=== PATIENT | female | born 1995 | race Caucasian/White ===

== ENCOUNTER 2017-02-17 21:35 | Emergency (ER) | payer MEDICAID ==
[~2017-02-17 21:35] MED LIST: ZOFR4TAB3 SL
--- NOTE | 2017-02-17 23:07 | PD ---
HPI Chief Complaint Contractions Date Seen: February 17, 2017 Time Seen: 23:00 Travel History International Travel<30 Days: No Contact w/Intl Traveler<30Days: No Known Affected Area: No History of Present Illness HPI 21-year-old 3 para 1 at 40-5/7 weeks gestation by LMP and 28 week ultrasound who presents today for mild irregular contractions. She states that she missed her care appointment this week and wanted to check in. She receives care from [facility] Strickland. She denies leakage of fluid, bleeding, decreased movement, worsening contractions. Para: 1 : 3 Miscarriage: 1 History Past Medical History Medical History: Denies Significant Hx Obstetric History Obstetric History 1 term vaginal delivery, 1 spontaneous AB Past Surgical History Surgical History: No Previous Surgery Family History Family History: Negative Social History Alcohol Use: No Tobacco Use: No Substance Abuse: No Allergies-Medications (Allergen,Severity, Reaction): Coded Allergies: No Known Allergies (Unverified , 09/11/16) Home Meds Active Scripts Ondansetron Odt (Zofran Odt)4 Mg Tab4 Mg SL Q8HR PRN (Nausea/Vomiting) #12 TAB Ref 0 Prov:Wilner Worley MD 09/11/16 Review of Systems Except as stated in HPI: all other systems reviewed are Neg Physical Exam Narrative GENERAL: Well-nourished, well-developed patient. SKIN: Warm and dry. HEAD: Normocephalic and atraumatic. EYES: No scleral icterus. No injection or drainage. ENT: No nasal drainage noted. Mucous membranes pink. Airway patent. NECK: Supple, trachea midline. No JVD. CARDIOVASCULAR: Regular rate and rhythm without murmurs, gallops, or rubs. RESPIRATORY: Breath sounds equal bilaterally. No accessory muscle use. ABDOMEN/GI: Abdomen soft, non-tender, bowel sounds present, no rebound, no guarding Gravid to [-] weeks size Fundal Height: [-] GENITOURINARY: External Genitalia: intact and normal in appearance BUS glands: [-] Cervix: [-] Dilatation: [-3] Effacement: [lg-] Station: [-2-] Presentation: [v-] Membranes: [intact] Uterine Contractions: [-] FHT's: Category: [-1] Baseline: [-] Reactive: [y-] Variability: [-] Decels: [-] EXTREMITIES: No cyanosis or edema. BACK: Nontender without obvious deformity. No CVA tenderness. NEUROLOGICAL: Awake and alert. Motor and sensory grossly within normal limits. Five out of 5 muscle strength in all muscle groups. Normal speech. Data Data Vital Signs Reviewed: Yes MDM Medical Record Reviewed: Yes Narrative Course / MDM Assessment: 40-5/7 week intrauterine without evidence of labor Plan: Discussed with the patient possibility of proceeding with labor induction versus further expectant care due to the risk of post term pregnancies. She would like to work on a plan with Pepper Strickland for induction on Sunday. Diagnosis Diagnosis: Primary Impression: Intrauterine Disposition: DISCHARGE HOME Mark Stewart MD February 17, 2017 23:07
== END 2017-02-17 23:11 | disposition home or self-care (01) ==
LOC: HOBED 21:35
DX: O26.93 Pregnancy related conditions, unspecified, third trimester (principal); R10.9 Unspecified abdominal pain; Z3A.40 40 weeks gestation of pregnancy
CPT/HCPCS: 99284

== ENCOUNTER 2017-02-20 14:35 | Inpatient (IN) | payer MEDICAID ==
[~2017-02-20] VITALS: Ht 170.2 cm; Wt 95.3 kg
[2017-02-20] VITALS (36 sets, daily range): BP systolic 99–137; BP diastolic 34–92; PULSE 68–117; RESP 16–18; TEMP 98.3–98.5
--- NOTE | 2017-02-20 15:26 | HHI.HP ---
HPI Chief Complaint Induction Date Seen: February 20, 2017 Time Seen: 15:25 Travel History International Travel<30 Days: No Contact w/Intl Traveler<30Days: No Known Affected Area: No History of Present Illness HPI Pt is a 21 year old at 41/1 weeks gestation based on LMP, confirmed by first trimester US presenting for Induction. care has been with Pepper Strickland. She endorses movement, denies vaginal bleeding, leakage of fluid. She has felt occasional contractions, irregular in frequency. She reports that this has been uncomplicated, denies issues with hypertension or elevated blood sugar. GBS negative. She is not sure if she would like to have an epidural. Para: 1 : 3 History Past Medical History Medical History: Denies Significant Hx Obstetric History Obstetric History 1 term vaginal delivery, 1 spontaneous Past Surgical History Narrative Surgical Appendectomy Family History Narrative Family History Mother: several medical issues, unable to specify Father: Heart disease Social History Alcohol Use: No Tobacco Use: Yes (5-7 cigs daily) Substance Abuse: No Allergies-Medications (Allergen,Severity, Reaction): Coded Allergies: No Known Allergies (Unverified , 02/20/17) Home Meds Reported Medications Vit-Iron Carbonyl ( Plus Iron 29-1 mg)1 Tab Tab1 Tab PO DAILY #30 TAB Ref 0 02/20/17 Discontinued Scripts Ondansetron Odt (Zofran Odt)4 Mg Tab4 Mg SL Q8HR PRN (Nausea/Vomiting) #12 TAB Ref 0 Prov:Wilner Worley MD 09/11/16 Review of Systems General / Constitutional: No: Fever, Chills Eyes: No: Visual changes HENT: No: Headaches Cardiovascular: No: Chest Pain or Discomfort Gastrointestinal: No: Abdominal Pain Genitourinary: No: Dysuria Musculoskeletal: Edema (lower extremity edema) Skin: Rash Psychiatric: No: Mood Disorder Physical Exam Narrative GENERAL: Well-nourished, well-developed patient. SKIN: Warm and dry. HEAD: Normocephalic and atraumatic. EYES: No scleral icterus. No injection or drainage. ENT: No nasal drainage noted. Mucous membranes pink. Airway patent. NECK: Supple, trachea midline. No JVD. CARDIOVASCULAR: Regular rate and rhythm without murmurs, gallops, or rubs. RESPIRATORY: Breath sounds equal bilaterally. No accessory muscle use. ABDOMEN/GI: Abdomen soft, non-tender, bowel sounds present, no rebound, no guarding Gravid to 40 weeks size GENITOURINARY: External Genitalia: intact and normal in appearance Cervix: Posterior Dilatation: 4cm Effacement: 40% Station: -3 Presentation: vertex Membranes: Intact Uterine Contractions: Occasional, irregular FHT's: Category: 1 Baseline: 145 Reactive: + Variability: Moderate Decels: Absent EXTREMITIES: No cyanosis or edema. BACK: Nontender without obvious deformity. No CVA tenderness. NEUROLOGICAL: Awake and alert. Motor and sensory grossly within normal limits. Five out of 5 muscle strength in all muscle groups. Normal speech. Data Data Vital Signs Reviewed: Yes Assessment/Plan Assessment and Plan Pt is a 21 year old at 41/1 weeks gestation based on LMP, confirmed by first trimester US presenting for Induction. IUP Category 1 tracing, reassuring Pt admitted for induction for post dates Will start Pitocin at rate of 1-1-30 Pt unsure if she would like an epidural Consider AROM GBS negative Anticipate vaginal delivery Irineo Escamilla Dr., MD R2 February 20, 2017 15:26
[2017-02-20] MEDS ORDERED: LACTATED RINGER'S 1000 ML INJ 1,000 ML IV PRN (15:40)
[2017-02-20] MEDS ORDERED: LACTATED RINGER'S 1000 ML INJ 1,000 ML IV SCH (15:40)
[2017-02-20] MEDS ORDERED: CITRIC ACID-SODIUM CITRATE LIQ 30 ML UDC PO SCH (15:45)
[2017-02-20] MEDS ORDERED: OXYTOCIN 30 UNITS-500ML PREMIX 500 ML IV SCH ×2 (15:45→22:00)
[2017-02-20] MEDS ORDERED: OXYTOCIN 30 UNITS-500ML PREMIX 500 ML IV ONE (15:45)
[2017-02-20] MEDS ORDERED: LIDOCAINE HCL 1% 50 ML VIAL I-DERMAL PRN (15:45)
[2017-02-20] MEDS ORDERED: LIDOCAINE HCL 1% 50 ML VIAL INFIL PRN (15:45)
[2017-02-20] MEDS ORDERED: ONDANSETRON HCL 4 MG/2 ML VIAL IV PRN (15:45)
[2017-02-20] MEDS ORDERED: SODIUM CHLORID 0.9% 500 ML INJ 500 ML IV PRN (15:45)
[2017-02-20] MEDS ORDERED: PREN29TA PO (15:45)
[2017-02-20] MEDS ORDERED: MINERAL OIL 10 ML VIAL TOPICAL PRN (15:45)
[2017-02-20] MEDS ORDERED: DIPHTH/TETANUS/ACEL PERTUSSIS (BOOSTER) 0.5 ML VIAL/PFS IM ONE (16:00)
[2017-02-20] MEDS ORDERED: SODIUM CHLOR 0.9% 1000 ML INJ 1,000 ML IV PRN (16:00)
[2017-02-20] MEDS ORDERED: MEASLES, MUMPS, RUBELLA VACCINE 0.5 ML VIAL SQ ONE (16:00)
[2017-02-20 16:14] LABS: AUTOMATED NEUTROPHIL # 5.1 TH/MM3 (1.8-7.7); BASOPHIL % 0.2 % (0.0-2.0); EOSINOPHIL # 0.1 TH/MM3 (0-0.4); EOSINOPHIL % 1.1 % (0.0-4.0); HEMATOCRIT 36.1 % (35.0-46.0); HEMO FLAGS DIFF FINAL; LYMPHOCYTE # 1.6 TH/MM3 (1.0-4.8); MEAN CELL VOLUME 83.3 FL (80.0-100.0); MEAN CORPUSCULAR HEMOGLOBIN 28.3 PG (27.0-34.0); MONO % 4.5 % (0.0-8.0); NEUT % 71.2 % (16.0-70.0); PLATELET COUNT 206 TH/MM3 (150-450); RED BLOOD COUNT 4.34 MIL/MM3 (4.00-5.30); RED CELL DISTRIBUTION WIDTH 13.8 % (11.6-17.2); WHITE BLOOD COUNT 7.2 TH/MM3 (4.0-11.0)
[2017-02-20 16:15] LABS: BLOOD, URINE NEG (NEG); GLUCOSE,URINE NEG (NEG); HYALINE CAST, URINE 1 /lpf (RARE); KETONE, URINE NEG (NEG); NITRITE,URINE NEG (NEG); SQUAMOUS EPITHELIAL CELL URINE <1 /hpf (0-5); URINE COLOR YELLOW (YELLW/STRAW)
[2017-02-20 16:18] LABS: COMMENT (UR) CULT NOT INDICATED; CULTURE IF INDICATED CULT NOT INDICATED
[2017-02-20 19:27] LABS: AMPHETAMINE, URINE NEG (NEG); BARBITURATES, URINE NEG (NEG); COCAINE, URINE NEG (NEG)
[2017-02-20] MEDS ORDERED: fentaNYL 2MCG-BUPIV 0.125% INJ 100 ML ONE (19:34)
[2017-02-20] MEDS ORDERED: ePHEDrine/NS 25 MG/5 ML SYR ONE (19:35)
[2017-02-20] MEDS ORDERED: ePHEDrine/NS 25 MG/5 ML SYR IV PRN (20:30)
[2017-02-20] MEDS ORDERED: fentaNYL 2MCG-BUPIV 0.125% 100 ML EPIDURAL SCH (20:30)
[2017-02-20] MEDS ORDERED: NO SYSTEM NARCOTICS PRN (20:30)
[2017-02-20] MEDS ORDERED: DO NOT ADMINISTER ANTICOAGULANTS PRN (20:30)
--- NOTE | 2017-02-20 20:56 | PD.LABORPN ---
Subjective Subjective Pt comfortable after epidural. FHR cat 1 TOCO 1-2 minutes SVE 7cm/80% effaced/-2to-3 AROM done, with clear fluid, moderate amount. Objective Vital Signs Vital Signs Date Time Temp Pulse Resp B/P Pulse Ox O2 Delivery O2 Flow Rate FiO2 02/20/17 20:45 18 02/20/17 20:44 70 110/61 02/20/17 20:30 75 110/62 02/20/17 20:20 75 110/75 02/20/17 20:20 74 02/20/17 20:16 18 02/20/17 20:15 73 02/20/17 20:15 18 02/20/17 20:15 74 132/67 02/20/17 20:10 71 118/74 02/20/17 20:10 69 02/20/17 20:00 90 02/20/17 20:00 73 127/86 02/20/17 20:00 18 02/20/17 19:58 70 137/80 02/20/17 19:50 69 02/20/17 19:45 71 02/20/17 19:11 18 02/20/17 19:00 98.4 02/20/17 19:00 18 02/20/17 18:55 117 133/75 02/20/17 18:31 76 109/53 02/20/17 18:10 76 118/66 02/20/17 17:23 18 02/20/17 17:00 80 119/78 02/20/17 16:30 83 121/76 02/20/17 16:00 85 118/65 02/20/17 15:59 86 119/63 02/20/17 15:15 98.3 18 02/20/17 15:06 92 119/71 Objective Pelvic Exam: Cervix: soft-] Dilatation: [7cm-] Effacement: [80%-] Station: [-2 to -3] Presentation: [vertex] Membranes: [ruptured] Uterine Contractions: [1-2 minutes-] FHT's: Category: [1-] Baseline: [110-] Reactive: [-] Variability: [-] Decels: [-] Assessment/Plan Assessment and Plan Post-term labor. Progressing well. Continue Pitocin per protocol Heron Arellano MD February 20, 2017 20:56
--- NOTE | 2017-02-20 21:47 | PD.OB.DELI ---
Delivery Date: February 20, 2017 Anesthesia: Epidural Episiotomy: None Vaginal Delivery: Normal Presentation: Occiput anterior Nuchal Cord: None Delayed cord clamping (45 sec): No Infant: Male One Minute : 9 Five Minute : 9 Placenta: Spontaneous delivery, Intact, 3 vessel cord Laceration: No lacerations Additional Information Uncomplicated delivery. Intact perineum. EBL 150cc Heron Arellano MD February 20, 2017 21:47
[2017-02-20] MEDS ORDERED: ONDANSETRON ODT 4 MG TAB PO PRN (22:00)
[2017-02-20] MEDS ORDERED: ZOLPIDEM TARTRATE 5 MG TAB PO PRN (22:00)
[2017-02-20] MEDS ORDERED: ACETAMINOPHEN 325 MG TAB PO PRN (22:00)
[2017-02-20] MEDS ORDERED: ALUMINUM/MAGNESIUM/SIMETH 30 ML CUP PO PRN (22:00)
[2017-02-20] MEDS ORDERED: WITCH HAZEL 50%/GLYCERIN 12.5% 40 PAD JAR TOPICAL PRN (22:00)
[2017-02-20] MEDS ORDERED: SODIUM CHLORIDE 0.9% FLUSH 10 ML FLUSH IV FLUSH PRN (22:00)
[2017-02-20] MEDS ORDERED: BENZOCAINE 20% TOPICAL SPRAY 60 ML CAN TOPICAL PRN (22:00)
[2017-02-21] MEDS: IBUPROFEN 600 MG TAB PO PRN ×4 (04:48→22:43)
[2017-02-21 08:08] VITALS: BP 125/78; PULSE 68; RESP 18; TEMP 98.8
--- NOTE | 2017-02-21 08:27 | HHI.OB ---
Subjective Post Day: 1 Remarks Pt seen and examined this morning. day # 1 AFVSS overnight. Decreased lochia. Denies dysuria. No breast tenderness. She is feeding the baby via breast and bottle. Appetite good. No nausea or vomiting. Patient has not yet had a bowel movement. - Flatus. Ambulating well. Denies calf pain or shortness of breath. Otherwise, she is doing well this morning and has no other concerns. Objective Vitals/I&O Vital Signs Date Time Temp Pulse Resp B/P Pulse Ox O2 Delivery O2 Flow Rate FiO2 02/20/17 23:54 98.5 86 16 122/78 02/20/17 22:45 98.4 18 02/20/17 22:30 78 133/68 02/20/17 22:23 18 02/20/17 22:15 78 118/89 02/20/17 22:07 18 02/20/17 22:01 86 109/34 02/20/17 22:00 18 02/20/17 21:46 126/74 02/20/17 21:45 18 02/20/17 21:30 74 107/92 02/20/17 21:15 68 99/58 02/20/17 21:00 74 114/57 02/20/17 20:45 18 02/20/17 20:44 70 110/61 02/20/17 20:30 75 110/62 02/20/17 20:20 75 110/75 02/20/17 20:20 74 02/20/17 20:16 18 02/20/17 20:15 73 02/20/17 20:15 18 02/20/17 20:15 74 132/67 02/20/17 20:10 71 118/74 02/20/17 20:10 69 02/20/17 20:00 90 02/20/17 20:00 73 127/86 02/20/17 20:00 18 02/20/17 19:58 70 137/80 02/20/17 19:50 69 02/20/17 19:45 71 02/20/17 19:11 18 02/20/17 19:00 98.4 02/20/17 19:00 18 02/20/17 18:55 117 133/75 02/20/17 18:31 76 109/53 02/20/17 18:10 76 118/66 02/20/17 17:23 18 02/20/17 17:00 80 119/78 02/20/17 16:30 83 121/76 02/20/17 16:00 85 118/65 02/20/17 15:59 86 119/63 02/20/17 15:15 98.3 18 02/20/17 15:06 92 119/71 Objective Remarks GENERAL: Well-nourished, well-developed patient. CARDIOVASCULAR: Regular rate and rhythm without murmurs, gallops, or rubs. RESPIRATORY: Breath sounds equal bilaterally. No accessory muscle use. ABDOMEN/GI: Abdomen soft, non-tender. Fundus: Firm, non-tender at umbilicus. GENITOURINARY: Light to moderate bleeding. EXTREMITIES: No cyanosis or edema, non-tender, without signs of DVT. Medications and IVs Current Medications Medications (Trade) Dose Ordered Sig/Sandhya Route Start Time Stop Time Status Last Admin Oxytocin 500 ml @ 0 mls/hr TITRATE IV 02/20/17 15:45 02/20/17 16:00 Lactated Ringer's 1,000 ml @ 125 mls/hr Q8H IV 02/20/17 15:40 02/20/17 15:59 Lactated Ringer's 1,000 ml @ 3,000 mls/hr Q20M PRN IV 02/20/17 15:40 Sodium Chloride 500 ml @ 1,000 mls/hr ONCE PRN IV 02/20/17 15:45 02/21/17 15:44 (NS 1000 ml Inj) 1,000 ml @ 100 mls/hr Q10H PRN IV 02/20/17 16:00 (Zofran Inj) 4 mg Q6H PRN IV 02/20/17 15:45 (fentaNYL INJ) 50 mcg Q1H PRN IV PUSH 02/20/17 15:45 02/20/17 19:15 (fentaNYL INJ) 100 mcg Q1H PRN IV PUSH 02/20/17 15:45 (Muri-Lube Oil) 10 ml UNSCH PRN TOPICAL 02/20/17 15:45 (Flu (Quadrivalent) Vaccine Inj) 0.5 ml ONCE ONCE IM 02/21/17 10:00 02/21/17 10:01 Miscellaneous Information No systemic narcotics to be given except... UNSCH PRN .XX 02/20/17 20:30 02/21/17 20:29 Miscellaneous Information DO NOT ADMINISTER ANY ANTICOAGUL... UNSCH PRN .XX 02/20/17 20:30 02/21/17 20:29 (fentaNYL 2MCG-BUPIV 0.125% INJ) 100 ml @ 0 mls/hr TITRATE EPIDURAL 02/20/17 20:30 (ePHEDrine/NS 25 MG/5 ML SYR) 10 mg UNSCH PRN IV 02/20/17 20:30 02/21/17 20:29 (NS Flush) 2 ml UNSCH PRN IV FLUSH 02/20/17 22:00 (Tylenol) 650 mg Q4H PRN PO 02/20/17 22:00 02/21/17 04:48 (Motrin) 600 mg Q6H PRN PO 02/20/17 22:00 02/21/17 04:48 (Americaine 20% Top Spr) 1 spray Q4H PRN TOPICAL 02/20/17 22:00 (Tucks Pads) 1 applic QID PRN TOPICAL 02/20/17 22:00 (Karla-Colace) 2 tab Q12H PRN PO 02/20/17 22:00 (Ambien) 5 mg HS PRN PO 02/20/17 22:00 (Mag-Al Plus Susp Liq) 15 ml Q8H PRN PO 02/20/17 22:00 Ondansetron HCl 4 mg 4 mg Q6H PRN PO 02/20/17 22:00 (Pitocin 30 Units-NS 500 ml Premix) 500 ml @ 0 mls/hr TITRATE IV 02/20/17 22:00 (Percocet 5-325 Mg) 1 tab Q4H PRN PO 02/21/17 08:15 Assessment/Plan Assessment and Plan 21 y/o female who is PPD# 1 s/p induced vaginal delivery. -Continue routine care. -Percocet and Motrin PRN pain. -Encouraged OOB. Advised pelvic rest for 6 wks. -Re: ctrl, she is interested in the Depo-Provera shot like to further consider her options. -Anticipate discharge tomorrow. Irineo Barrera Dr., MD R2 February 21, 2017 08:27
[2017-02-21] MEDS ORDERED: INFLUENZA VIRUS VACCINE (QUADRIVALENT) 0.5 ML SYR IM ONE (10:00)
[2017-02-21] MEDS: DOCUSATE SODIUM 50 MG/SENNA 8.6 MG TAB PO PRN ×2 (10:17→11:43)
[2017-02-21] MEDS: oxyCODONE/ACETAMINOPHEN 5 MG/325 MG TAB PO PRN ×3 (10:18→22:43)
[2017-02-21 19:20] VITALS: BP 115/66; PULSE 78; RESP 18; TEMP 98.2
[2017-02-22 08:45] VITALS: BP 132/89; PULSE 65; RESP 16; TEMP 98.9
[2017-02-22] MEDS: oxyCODONE/ACETAMINOPHEN 5 MG/325 MG TAB PO PRN (08:50)
[2017-02-22] MEDS: IBUPROFEN 600 MG TAB PO PRN (08:50)
--- NOTE | 2017-02-22 10:30 | HHI.OB ---
Subjective Post Day: 2 Remarks Pt seen and examined this morning. day # 2 AFVSS overnight. Decreased lochia. Denies dysuria. No breast tenderness. She is feeding the baby via breast and bottle. Appetite good. No nausea or vomiting. Has had BM. Ambulating well. Denies calf pain or shortness of breath. Otherwise, she is doing well this morning and has no other concerns. (Irineo Redman MD R2) Objective Vitals/I&O Vital Signs Date Time Temp Pulse Resp B/P Pulse Ox O2 Delivery O2 Flow Rate FiO2 02/22/17 08:45 98.9 65 16 132/89 02/21/17 19:20 98.2 78 18 02/21/17 19:20 115/66 Objective Remarks GENERAL: Well-nourished, well-developed patient. CARDIOVASCULAR: Regular rate and rhythm without murmurs, gallops, or rubs. RESPIRATORY: Breath sounds equal bilaterally. No accessory muscle use. ABDOMEN/GI: Abdomen soft, non-tender. Fundus: Firm, non-tender at umbilicus. GENITOURINARY: Light to moderate bleeding. EXTREMITIES: No cyanosis or edema, non-tender, without signs of DVT. Medications and IVs Current Medications Medications (Trade) Dose Ordered Sig/Sandhya Route Start Time Stop Time Status Last Admin Oxytocin 500 ml @ 0 mls/hr TITRATE IV 02/20/17 15:45 02/20/17 16:00 Lactated Ringer's 1,000 ml @ 125 mls/hr Q8H IV 02/20/17 15:40 02/20/17 15:59 Lactated Ringer's 1,000 ml @ 3,000 mls/hr Q20M PRN IV 02/20/17 15:40 (NS 1000 ml Inj) 1,000 ml @ 100 mls/hr Q10H PRN IV 02/20/17 16:00 (Zofran Inj) 4 mg Q6H PRN IV 02/20/17 15:45 (fentaNYL INJ) 50 mcg Q1H PRN IV PUSH 02/20/17 15:45 02/20/17 19:15 (fentaNYL INJ) 100 mcg Q1H PRN IV PUSH 02/20/17 15:45 Mineral Oil 10 ml 10 ml UNSCH PRN TOPICAL 02/20/17 15:45 (fentaNYL 2MCG-BUPIV 0.125% INJ) 100 ml @ 0 mls/hr TITRATE EPIDURAL 02/20/17 20:30 (NS Flush) 2 ml UNSCH PRN IV FLUSH 02/20/17 22:00 (Tylenol) 650 mg Q4H PRN PO 02/20/17 22:00 02/21/17 04:48 (Motrin) 600 mg Q6H PRN PO 02/20/17 22:00 02/22/17 08:50 (Americaine 20% Top Spr) 1 spray Q4H PRN TOPICAL 02/20/17 22:00 (Tucks Pads) 1 applic QID PRN TOPICAL 02/20/17 22:00 (Karla-Colace) 2 tab Q12H PRN PO 02/20/17 22:00 02/21/17 11:43 (Ambien) 5 mg HS PRN PO 02/20/17 22:00 (Mag-Al Plus Susp Liq) 15 ml Q8H PRN PO 02/20/17 22:00 Ondansetron HCl 4 mg 4 mg Q6H PRN PO 02/20/17 22:00 (Pitocin 30 Units-NS 500 ml Premix) 500 ml @ 0 mls/hr TITRATE IV 02/20/17 22:00 (Percocet 5-325 Mg) 1 tab Q4H PRN PO 02/21/17 08:15 02/22/17 08:50 (Irineo Redman MD R2) Assessment/Plan Assessment and Plan 21 y/o female who is PPD# 2 s/p induced vaginal delivery. -Continue routine care. -Percocet and Motrin PRN pain. -Encouraged OOB. Advised pelvic rest for 6 wks. -Re: ctrl, she would like Depo-Provera shot before discharge. -Anticipate discharge later today. randy Bull (Irineo Redman MD R2) Collaborating MD Comments Agree with management (Katerina Bull MD) Irineo Redman MD R2 February 22, 2017 10:30 Katerina Bull MD February 26, 2017 09:16
[2017-02-22] MEDS ORDERED: SENN1TAB PO (10:33)
[2017-02-22] MEDS ORDERED: Ibuprofen PO (10:33)
[2017-02-22] MEDS ORDERED: ACET1TAB86 PO (10:33)
--- NOTE | 2017-02-22 10:34 | HHI.DCPOC ---
Discharge Care Plan Diagnosis: (1) Normal vaginal delivery Report Symptoms to Your Doctor -Temperate above 100.5 degrees -Redness, of incision or excessive or foul smelling drainage -Unusual pain or calf pain -Increased vaginal bleeding -Painful or difficulty urinating -Feelings of extreme sadness or anxiety after 2 weeks Goals to Promote Your Health * To prevent worsening of your condition and complications * To maintain your health at the optimal level Directions to Meet Your Goals Take your medications as prescribed Follow your dietary instruction Follow activity as directed Ensure plenty of rest for recovery Drink fluids for hydration Keep your appointments as scheduled Take your immunizations and boosters as scheduled If your symptoms worsen call your PCP, if no PCP go to Urgent Care Center or Emergency Room Smoking is Dangerous to Your Health. Avoid second hand smoke Call the 24-hour crisis hotline for domestic abuse at Irineo Redman MD R2 February 22, 2017 10:34
[2017-02-22] MEDS ORDERED: medroxyPROGESTERone ACETATE SUSP 150 MG/ML SYRINGE IM ONE (11:00)
[2017-02-27 10:32] LABS: PHENCYCLIDINE URINE NEG (NEG)
[2017-02-27 10:33] LABS: BATH SALTS (MDPV) UR NEG (NEG); ECSTASY (MDMA) UR NEG (NEG); GABAPENTIN UR NEG (NEG); HEROIN (6-ACETYLMORPHINE) UR NEG (NEG); HYDROMORPHONE U NEG (NEG); K2 SPICE UR NEG (NEG); OBMETHADONE UR NEG (NEG); OXYCODONE (PERCODAN) NEG (NEG)
== END 2017-02-22 12:59 | disposition home or self-care (01) | DRG 775 ==
LOC: H2EA 14:35 → H1EA 23:39
PROVIDERS: ADMIT Obstetrics & Gynecology; ATTEND Obstetrics & Gynecology
PROC: 10E0XZZ Delivery of Products of Conception, External Approach (ICD-10-PCS; principal; 2017-02-20)
PROC: 3E033VJ Introduction of Other Hormone into Peripheral Vein, Percutaneous Approach (ICD-10-PCS; 2017-02-20)
DX: O48.0 Post-term pregnancy (principal); F17.210 Nicotine dependence, cigarettes, uncomplicated; O99.334 Smoking (tobacco) complicating childbirth; Z37.0 Single live birth; Z3A.41 41 weeks gestation of pregnancy
CPT/HCPCS: 59025; 80307; 81001; 85025; 86850; 86900; 86901; 90715; G0481; J1050; J2590; J3010; J7120